=== PATIENT | female | born 1990 | race Caucasian/White ===

== ENCOUNTER 2017-11-13 15:42 | Observation (INO) | payer BC ==
[~2017-11-13] VITALS: Ht 154.9 cm; Wt 85.8 kg
[~2017-11-13 15:42] MED LIST: ALBU18HF IH; FEXO1TAB27 PO; HYDR-971 PO; LEXAPRO10 MG PO; METF10002 PO; METR500T PO; NITR100C62 PO; PROM25TA10 PO; SULF1TAB24 PO
[2017-11-13 17:28] VITALS: BP 117/74
[2017-11-13] MEDS ORDERED: ESCITALOPRAM OX20 MG PO (17:53)
[2017-11-13] MEDS ORDERED: ALBU1.25 NEB (17:53)
[2017-11-13] MEDS ORDERED: BIRTH CONTROL PILLS PO (17:53)
[2017-11-13] MEDS ORDERED: ALBUTEROL SULFATE 8GM INHALER. IH PRN (18:00)
[2017-11-13] MEDS ORDERED: NON FORMULARY ITEM (Albuterol Sulfate (Albuterol Sulfate Neb Soln) 1 VIAL) NEB SCH (18:00)
[2017-11-13] MEDS ORDERED: ALBUTEROL SULFATE 2.5 MG/3 ML NEBU. NEB PRN (18:15)
[2017-11-13] MEDS: IPRATRPIUM/ALBUTEROL 0.5/2.5MG 3 ML NEBU. NEB SCH (18:49)
--- NOTE | 2017-11-13 19:46 | RAD ---
PA and lateral chest radiograph. History: Cough, shortness of air. Comparison: None. Findings: Cardiomediastinal silhouette is within normal limits for size. Bilateral lung tolbert appear clear without evidence of infiltrate, effusion, or pneumothorax. Impression: 1. No acute cardiopulmonary process. Electronically signed by: Dusty Pettit MD (11/13/2017 7:42 PM) [facility]
[2017-11-13 19:48] LABS: BASO # 0.1 x10^3/uL (0.0-0.2); BASO % 1 % (0-3); EOS # 0.7 x10^3/uL (0.0-0.7); EOS % 6 % (0-3); HEMATOCRIT 40.4 % (36.0-47.0); HEMOGLOBIN 13.5 g/dL (12.0-15.5); LYMPH # 2.7 x10^3/uL (1.0-4.8); LYMPH % 23 % (24-48); MEAN CORPUSCULAR HEMOGLOBIN 28 pg (25-35); MEAN CORPUSCULAR HGB CONC 33 g/dL (31-37); MEAN CORPUSCULAR VOLUME 85 fL (79-100); MONO # 0.8 x10^3/uL (0.0-1.1); MONO % 7 % (0-9); NEUT # 7.3 x10^3uL (1.8-7.7); NEUT % 64 % (31-73); PLATELET COUNT 298 x10^3/uL (140-400); RED BLOOD COUNT 4.77 x10^6/uL (3.50-5.40); RED CELL DISTRIBUTION WIDTH 14.4 % (11.5-14.5); WHITE BLOOD COUNT 11.6 x10^3/uL (4.0-11.0)
[2017-11-13] MEDS ORDERED: ALBUTEROL SULFATE 2.5 MG/3 ML NEBU. NEB SCH (20:00)
[2017-11-13 20:01] LABS: ALBUMIN 3.5 g/dL (3.4-5.0); ALBUMIN/GLOBULIN RATIO 0.7 (1.0-1.7); CALCIUM 9.1 mg/dL (8.5-10.1); POTASSIUM 3.5 mmol/L (3.5-5.1); TOTAL BILIRUBIN 0.2 mg/dL (0.2-1.0); TOTAL PROTEIN 8.2 g/dL (6.4-8.2)
[2017-11-13 20:04] VITALS: BP 97/64
[2017-11-13] MEDS ORDERED: DIPH25CA58 PO (20:28)
[2017-11-13 20:40] LABS: INFLUENZA A PATIENT NEGATIVE (NEGATIVE); INFLUENZA B PATIENT NEGATIVE (NEGATIVE)
[2017-11-13] MEDS ORDERED: diphenhydrAMINE HCL 25 MG CAPSULE PO SCH (21:00)
[2017-11-13] MEDS: methylPREDNISolone SOD SUCC PF 40 MG/ML VIAL. IV SCH (21:10)
[2017-11-13 22:41] VITALS: BP 97/52
[2017-11-14] MEDS: IPRATRPIUM/ALBUTEROL 0.5/2.5MG 3 ML NEBU. NEB SCH ×2 (05:39→12:23)
[2017-11-14] MEDS: methylPREDNISolone SOD SUCC PF 40 MG/ML VIAL. IV SCH ×2 (05:42→15:29)
[2017-11-14 05:57] VITALS: BP 116/72
[2017-11-14] MEDS ORDERED: ACETAMINOPHEN 325 MG TABLET PO PRN (06:00)
[2017-11-14 07:01] LABS: BASO % 0 % (0-3); EOS % 0 % (0-3); HEMATOCRIT 42.1 % (36.0-47.0); HEMOGLOBIN 14.1 g/dL (12.0-15.5); LYMPH # 0.7 x10^3/uL (1.0-4.8); LYMPH % 6 % (24-48); MEAN CORPUSCULAR HEMOGLOBIN 28 pg (25-35); MEAN CORPUSCULAR HGB CONC 33 g/dL (31-37); MEAN CORPUSCULAR VOLUME 85 fL (79-100); MONO # 0.1 x10^3/uL (0.0-1.1); MONO % 1 % (0-9); NEUT # 10.4 x10^3uL (1.8-7.7); NEUT % 93 % (31-73); PLATELET COUNT 323 x10^3/uL (140-400); RED BLOOD COUNT 4.97 x10^6/uL (3.50-5.40); RED CELL DISTRIBUTION WIDTH 14.4 % (11.5-14.5); WHITE BLOOD COUNT 11.1 x10^3/uL (4.0-11.0)
[2017-11-14 07:12] LABS: CALCIUM 9.3 mg/dL (8.5-10.1)
[2017-11-14] MEDS ORDERED: BIRTH CONTROL PILLS PO SCH (09:00)
[2017-11-14] MEDS ORDERED: PNEUMOC CONJ VACC 23-VALENT 0.5 ML VIAL. VAX IM ONE (09:00)
[2017-11-14] MEDS ORDERED: CITALOPRAM 20 MG TABLET. PO SCH (09:00)
[2017-11-14] MEDS ORDERED: IOHEXOL 300 MG/ML 75 ML VIAL. IV ONE (10:10)
[2017-11-14] MEDS ORDERED: IBUPROFEN 800 MG TABLET. PO PRN (10:30)
[2017-11-14 11:16] VITALS: BP 111/81
[2017-11-14] MEDS ORDERED: PRED-220 PO (13:12)
[2017-11-14] MEDS ORDERED: IPRA3AMP NEB (13:12)
--- NOTE | 2017-11-14 14:59 | RAD ---
CTA chest 11/14/2017 Clinical indication: Elevated D dimer and shortness of air. Comparison: Two-view chest 11/13/2017. Technique: Multiple CTA images of the chest were obtained following the intravenous administration of 75 mL Omnipaque 300 with subsequent additional 75 mL intravenously due to poor contrast timing on the first run. MIPS were obtained of the chest. PQRS Compliance Statement: One or more of the following individualized dose reduction techniques were utilized for this examination: 1. Automated exposure control 2. Adjustment of the mA and/or kV according to patient size 3. Use of iterative reconstruction technique Findings: No central or major segmental pulmonary arterial filling defect. Heart size is normal without significant pericardial effusion. No axillary, mediastinal or obvious hilar lymphadenopathy. The central airways are patent. No pleural effusion, pneumothorax or focal consolidation. There are few scattered sub-5 mm noncalcified pulmonary nodules which are considered benign the absence of known or suspected malignancy with no additional follow-up according to new guidelines. No pleural effusion or pneumothorax. There are no destructive osseous lesions. Limited images of the upper abdomen: Unremarkable. Impression: No central or major segmental pulmonary artery filling defect to suggest pulmonary embolism.
[2017-11-14 15:04] VITALS: BP 122/77
== END 2017-11-14 16:43 | disposition home or self-care (01) ==
LOC: INTOOBSV 17:05 → 1 SOUTH 17:05
PROVIDERS: ADMIT Family Medicine; ATTEND Family Medicine
DX: J45.51 Severe persistent asthma with (acute) exacerbation (principal); Z82.5 Family history of asthma and other chronic lower respiratory diseases
CPT/HCPCS: 36415; 71046; 71275; 80048; 80053; 83605; 84702; 85025; 85379; 87804; 94640; 96374; 96376; G0378; G0379; J2920; J7620; Q0163; Q9967

== ENCOUNTER 2020-02-22 13:34 | Emergency (ER) | payer BC ==
[~2020-02-22] VITALS: Ht 154.9 cm; Wt 96.8 kg
[~2020-02-22 13:34] MED LIST changes: +ALBU1.25 NEB; -ALBU18HF IH; +ALBU2.5V8 IH; +BENZ100C PO; +BIRTH CONTROL PILLS PO; +DIPH25CA58 PO; +ESCITALOPRAM OX20 MG PO; +FAMO-63 PO; +GUAI118L13 PO; +HYDR-3165 PO; -HYDR-971 PO; +HYDR25TA PO; +IPRA3AMP29 NEB; -METF10002 PO; +METF10007 PO; +ONDA4TAB12 PO; +PRED-220 PO; +PRED20TA PO; +PRED50TA PO
[2020-02-22 13:35] VITALS: BP 121/78
[2020-02-22] MEDS ORDERED: IV NORMAL SALINE 1,000ML 1,000 ML IV ONE (14:30)
[2020-02-22 14:42] LABS: U PREG PATIENT NEGATIVE (NEG)
[2020-02-22 14:46] LABS: CLARITY,URINE CLOUDY; COLOR,URINE ORANGE
[2020-02-22 14:47] LABS: BACTERIA,URINE 0 /HPF (0-FEW); RBC,URINE >40 /HPF (0-2); SQUAMOUS EPITHELIAL CELL,UR FEW /LPF; WBC,URINE >40 /HPF (0-4)
[2020-02-22 14:56] LABS: BASO # 0.1 x10^3/uL (0.0-0.2); BASO % 1 % (0-3); EOS # 0.3 x10^3/uL (0.0-0.7); EOS % 2 % (0-3); HEMATOCRIT 40.9 % (36.0-47.0); HEMOGLOBIN 13.3 g/dL (12.0-15.5); LYMPH # 1.6 x10^3/uL (1.0-4.8); LYMPH % 13 % (24-48); MEAN CORPUSCULAR HEMOGLOBIN 27 pg (25-35); MEAN CORPUSCULAR HGB CONC 33 g/dL (31-37); MEAN CORPUSCULAR VOLUME 82 fL (79-100); MONO # 0.7 x10^3/uL (0.0-1.1); MONO % 6 % (0-9); NEUT # 9.7 x10^3uL (1.8-7.7); NEUT % 79 % (31-73); PLATELET COUNT 315 x10^3/uL (140-400); RED BLOOD COUNT 4.99 x10^6/uL (3.50-5.40); RED CELL DISTRIBUTION WIDTH 15.1 % (11.5-14.5); WHITE BLOOD COUNT 12.4 x10^3/uL (4.0-11.0)
[2020-02-22] MEDS ORDERED: diphenhydrAMINE 50 MG/ML VIAL IVP ONE (15:00)
[2020-02-22] MEDS ORDERED: KETOROLAC 15 MG/ML VIAL. IVP ONE (15:00)
[2020-02-22] MEDS ORDERED: METOCLOPRAMIDE HCL 10 MG/2 ML VIAL. IVP ONE (15:00)
--- NOTE | 2020-02-22 15:00 | RAD ---
INDICATION: Flank pain COMPARISON: None. TECHNIQUE: Axial CT images obtained through the abdomen and pelvis without contrast. Limited assessment of solid organ structures and vasculature secondary to lack of intravenous contrast. . One or more of the following individualized dose reduction techniques were utilized for this examination: 1. Automated exposure control; 2. Adjustment of the mA and/or kV according to patient size; 3. Use of iterative reconstruction technique. FINDINGS: Groundglass opacity within the lingula. Abdominal aorta is not aneurysmal. Small fat-containing umbilical hernia. No intrahepatic bile duct dilation. No peripancreatic fluid collection. Spleen is unremarkable. No left-sided hydronephrosis. Urinary bladder is partially distended with mild indistinctness of the adjacent fat with prominence of the wall. No right-sided hydronephrosis. Within the left adnexa there is a cystic lesion identified measuring up to about 4 cm. Appendix measures up to about 6 mm without adjacent inflammatory changes. High density material seen within it proximally could be high density intraluminal content or appendicolith. No dilated loops of bowel to suggest obstruction. Degenerative changes the spine. Pars defects at L5. IMPRESSION: * Urinary bladder wall is prominent with mild indistinctness of adjacent fat. Would correlate with symptoms in the region to ensure that this is not secondary to cystitis. * Cystic lesion at the left ovary. If further evaluation is desired pelvic ultrasound could further assess Electronically signed by: Mookie Elizabeth MD (02/22/2020 2:58 PM) [id number]
[2020-02-22 15:04] LABS: CALCIUM 9.1 mg/dL (8.5-10.1); GFR 65.6; POTASSIUM 3.9 mmol/L (3.5-5.1)
[2020-02-22 15:10] LABS: ALBUMIN 3.8 g/dL (3.4-5.0); ALBUMIN/GLOBULIN RATIO 0.8 (1.0-1.7); TOTAL BILIRUBIN 0.2 mg/dL (0.2-1.0); TOTAL PROTEIN 8.3 g/dL (6.4-8.2)
[2020-02-22] MEDS ORDERED: ONDA4TAB12 PO (15:26)
[2020-02-22] MEDS ORDERED: CEPH-264 PO (15:26)
--- NOTE | 2020-02-22 15:26 | PHYS DOC ---
Past History Past Medical History: Anxiety, Asthma Past Surgical History: , Tubal ligation Smoking: Non-smoker Alcohol Use: Rarely Drug Use: None General Adult EDM: Chief Complaint: FLANK PAIN HPI: HPI: 30-year-old female presents with 4 day history of dysuria with left-sided flank pain. Reports some associated nausea. Patient thought she had a urinary tract infection and was using [id number]-[id number] Azo. Patient reports symptoms have significantly worsened. Denies trauma. Patient does report seeing some blood in her urine the other day. Denies history of kidney stones. Denies . Reports history of tubal ligation. Review of Systems: Review of Systems: Constitutional: Denies fever or chills Eyes: Denies redness or eye pain HENT: Denies nasal congestion or sore throat Respiratory: Denies cough or shortness of breath Cardiovascular: Denies chest pain or palpitations GI: Reports suprapubic abdominal pain and nausea; denies vomiting : Reports dysuria and hematuria Musculoskeletal: Reports left flank pain; denies joint pain Integument: Denies rash or skin lesions Neurologic: Denies headache, focal weakness or sensory changes Complete systems were reviewed and found to be within normal limits, except as documented in this note. Current Medications: Current Meds: Current Medications Medications (Trade) Dose Ordered Sig/Duncan Start Time Stop Time Status Last Admin Dose Admin Ceftriaxone Sodium 1 gm/ Sodium Chloride 50 ml @ 100 mls/hr 1X ONCE 02/22/20 15:45 02/22/20 16:14 Diphenhydramine HCl (Benadryl) 25 mg 1X ONCE 02/22/20 15:00 02/22/20 15:01 DC 02/22/20 14:47 25 MG Ketorolac Tromethamine (Toradol 15mg Vial) 15 mg 1X ONCE 02/22/20 15:00 02/22/20 15:01 DC 02/22/20 14:47 15 MG Metoclopramide HCl (Reglan Vial) 10 mg 1X ONCE 02/22/20 15:00 02/22/20 15:01 DC 02/22/20 14:47 10 MG Sodium Chloride 1,000 ml @ 1,000 mls/hr 1X ONCE 02/22/20 14:30 02/22/20 15:29 02/22/20 14:47 1,000 MLS/HR Allergies: Allergies: Allergies Coded Allergies Type Severity Reaction Last Updated Verified Penicillins Allergy Unknown keflex ok 02/22/20 Yes shellfish derived Allergy Unknown 10/11/19 Yes Physical Exam: PE: Constitutional: Well developed, well nourished, no acute distress, non-toxic appearance HENT: Normocephalic, atraumatic, oropharynx moist Eyes: Conjunctiva normal, no discharge Neck: Normal range of motion, no tenderness, supple Cardiovascular: Heart rate normal, regular rhythm Lungs & Thorax: Bilateral breath sounds clear to auscultation, no wheezing Abdomen: Soft, suprapubic tenderness Skin: Warm, dry, no erythema, no rash Back: No midline tenderness, left CVA tenderness Extremities: No tenderness, ROM intact, no edema Neurologic: Alert and oriented X 3, no focal deficits noted Psychologic: Affect normal, judgment normal Current Patient Data: Labs: Laboratory Tests Test 02/22/20 13:40 02/22/20 14:37 Urine Collection Type Unknown Urine Color [place] Urine Clarity Cloudy Urine pH Urine Specific [place] Urine Protein (NEG-TRACE) Urine Glucose (UA) mg/dL (NEG) Urine Ketones (Stick) mg/dL (NEG) Urine Blood (NEG) Urine Nitrite (NEG) Urine Bilirubin (NEG) Urine Urobilinogen Dipstick mg/dL (0.2 mg/dL) Urine Leukocyte Esterase (NEG) Urine RBC >40 /HPF (0-2) Urine WBC >40 /HPF (0-4) Urine Squamous Epithelial Cells Few /LPF Urine Bacteria 0 /HPF (0-FEW) Urine Test Negative (NEG) White Blood Count 12.4 x10^3/uL (4.0-11.0) H Red Blood Count 4.99 x10^6/uL (3.50-5.40) Hemoglobin 13.3 g/dL (12.0-15.5) Hematocrit 40.9 % (36.0-47.0) Mean Corpuscular Volume 82 fL (79-100) Mean Corpuscular Hemoglobin 27 pg (25-35) Mean Corpuscular Hemoglobin Concent 33 g/dL (31-37) Red Cell Distribution Width 15.1 % (11.5-14.5) H Platelet Count 315 x10^3/uL (140-400) Neutrophils (%) (Auto) 79 % (31-73) H Lymphocytes (%) (Auto) 13 % (24-48) L Monocytes (%) (Auto) 6 % (0-9) Eosinophils (%) (Auto) 2 % (0-3) Basophils (%) (Auto) 1 % (0-3) Neutrophils # (Auto) 9.7 x10^3uL (1.8-7.7) H Lymphocytes # (Auto) 1.6 x10^3/uL (1.0-4.8) Monocytes # (Auto) 0.7 x10^3/uL (0.0-1.1) Eosinophils # (Auto) 0.3 x10^3/uL (0.0-0.7) Basophils # (Auto) 0.1 x10^3/uL (0.0-0.2) Sodium Level 136 mmol/L (136-145) Potassium Level 3.9 mmol/L (3.5-5.1) Chloride Level 102 mmol/L (98-107) Carbon Dioxide Level 25 mmol/L (21-32) Anion Gap 9 (6-14) Blood Urea Nitrogen 12 mg/dL (7-20) Creatinine 1.0 mg/dL (0.6-1.0) Estimated GFR (Cockcroft-Gault) 65.6 BUN/Creatinine Ratio 12 (6-20) Glucose Level 74 mg/dL (70-99) Lactic Acid Level 0.9 mmol/L (0.4-2.0) Calcium Level 9.1 mg/dL (8.5-10.1) Magnesium Level 2.0 mg/dL (1.8-2.4) Total Bilirubin 0.2 mg/dL (0.2-1.0) Aspartate Amino Transferase (AST) 19 U/L (15-37) Alanine Aminotransferase (ALT) 24 U/L (14-59) Alkaline Phosphatase 114 U/L (46-116) Total Protein 8.3 g/dL (6.4-8.2) H Albumin 3.8 g/dL (3.4-5.0) Albumin/Globulin Ratio 0.8 (1.0-1.7) L Lipase 67 U/L (73-393) L Vital Signs: Vital Signs Date Time Temp Pulse Resp B/P (MAP) Pulse Ox O2 Delivery O2 Flow Rate FiO2 02/22/20 13:35 97.6 90 20 121/78 (92) 97 Room Air EKG: EKG: [] Radiology/Procedures: Radiology/Procedures: PROCEDURE: CT ABDOMEN PELVIS WO CONTRAST INDICATION: Flank pain COMPARISON: None. TECHNIQUE: Axial CT images obtained through the abdomen and pelvis without contrast. Limited assessment of solid organ structures and vasculature secondary to lack of intravenous contrast. . One or more of the following individualized dose reduction techniques were utilized for this examination: 1. Automated exposure control; 2. Adjustment of the mA and/or kV according to patient size; 3. Use of iterative reconstruction technique. FINDINGS: Groundglass opacity within the lingula. Abdominal aorta is not aneurysmal. Small fat-containing umbilical hernia. No intrahepatic bile duct dilation. No peripancreatic fluid collection. Spleen is unremarkable. No left-sided hydronephrosis. Urinary bladder is partially distended with mild indistinctness of the adjacent fat with prominence of the wall. No right-sided hydronephrosis. Within the left adnexa there is a cystic lesion identified measuring up to about 4 cm. Appendix measures up to about 6 mm without adjacent inflammatory changes. High density material seen within it proximally could be high density intraluminal content or appendicolith. No dilated loops of bowel to suggest obstruction. Degenerative changes the spine. Pars defects at L5. IMPRESSION: * Urinary bladder wall is prominent with mild indistinctness of adjacent fat. Would correlate with symptoms in the region to ensure that this is not secondary to cystitis. * Cystic lesion at the left ovary. If further evaluation is desired pelvic ultrasound could further assess Electronically signed by: Mookie Elizabeth MD (02/22/2020 2:58 PM) [id number] Course & Med Decision Making: Course & Med Decision Making Pertinent Labs and Imaging studies reviewed. (See chart for details) Patient presents with 4 day history of dysuria with hematuria, nausea, and left flank pain. Symptomatic treatment provided. There is fluid hydration provided. Labs obtained and posted to chart. UA with microscopic hematuria and signs of infection. Empiric antibiotic initiated. CT abdomen/pelvis without findings consistent for obstructing uropathy. Findings appear consistent with cystitis. Clinical concern for pyelonephritis. Patient stable for discharge with outpatient follow-up with PCP. Discussed findings and plan with patient, who acknowledges understanding and agreement. Ethan Disclaimer: Ethan Disclaimer: This electronic medical record was generated, in whole or in part, using a voice recognition dictation system. Departure Departure: Impression: Primary Impression: Pyelonephritis Disposition: HOME, SELF-CARE Condition: STABLE Referrals: PCP,NO (PCP) Patient Instructions: Pyelonephritis, Adult, [place] Scripts Ondansetron (ONDANSETRON ODT) 4 Mg Tab.rapdis 1 TAB PO PRN Q6-8HRS PRN for NAUSEA, #16 TAB Prov: LISSETH RODRÍGUEZ DO 02/22/20 Cephalexin (KEFLEX) 500 Mg Capsule 1 CAP PO TID for Kidney infection for 7 Days, #21 CAP 0 Refills Prov: LISSETH RODRÍGUEZ DO 02/22/20 LISSETH RODRÍGUEZ DO Feb 22, 2020 15:26
[2020-02-22] MEDS ORDERED: IV NORMAL SALINE 50ML 50 ML ONE (15:28)
[2020-02-22] MEDS ORDERED: cefTRIAXone SODIUM 1 GM VIAL ONE (15:28)
== END 2020-02-22 15:45 | disposition home or self-care (01) ==
LOC: MERGE 13:34 → ER 13:34
DX: N12 Tubulo-interstitial nephritis, not specified as acute or chronic (principal); J45.909 Unspecified asthma, uncomplicated; Z98.890 Other specified postprocedural states; Z98.51 Tubal ligation status; Z88.0 Allergy status to penicillin; Z91.013 Allergy to seafood
CPT/HCPCS: 36415; 74176; 80053; 81001; 81025; 83605; 83690; 83735; 85025; 87086; 96374; 96375; 99284; J1200; J1885; J2765; J7030

== ENCOUNTER 2020-04-06 12:15 | Emergency (ER) | payer BC ==
[~2020-04-06] VITALS: Ht 154.9 cm; Wt 94.9 kg
[~2020-04-06 12:15] MED LIST changes: +CEPH-264 PO
--- NOTE | 2020-04-06 12:40 | PHYS DOC ---
Past History Past Medical History: Anxiety, Asthma Past Surgical History: , Tubal ligation Smoking: Non-smoker Alcohol Use: Rarely Drug Use: None General Adult EDM: Chief Complaint: SKIN PROBLEM HPI: HPI: Patient presents to the emergency department for evaluation of a sunburn which she received on Monday. She states she has a few small focal blisters. She states she is tried whqn-heh-[id number] ointments without improvement. She has no other complaints or symptoms at this time. She does request a work note for today and tomorrow. Review of Systems: Review of Systems: Constitutional: Denies fever or chills Respiratory: Denies cough or shortness of breath Cardiovascular: Denies chest pain or edema GI: Denies abdominal pain, nausea, vomiting, bloody stools or diarrhea : Denies dysuria, denies Musculoskeletal: Denies back pain or joint pain Integument: Denies rash Neurologic: Denies headache, focal weakness or sensory changes Heart Score: Risk Factors: Risk Factors: DM, Current or recent (<one month) smoker, HTN, HLP, family history of CAD, obesity. Risk Scores: Score 0 - 3: 2.5% MACE over next 6 weeks - Discharge Home Score 4 - 6: 20.3% MACE over next 6 weeks - Admit for Clinical Observation Score 7 - 10: 72.7% MACE over next 6 weeks - Early Invasive Strategies Allergies: Allergies: Allergies Coded Allergies Type Severity Reaction Last Updated Verified Penicillins Allergy Intermediate 11/14/17 Yes shellfish derived Allergy Unknown 02/24/20 Yes Physical Exam: PE: PHYSICAL EXAM: HEENT: Atruamatic NECK: Supple, normal ROM, non-tender. CARDIAC: Regular Rate and Rhythm LUNGS: Clear Bilaterally SKIN: There is hyperemia of the skin diffusely, with a small focal blister about 1 cm on the left shoulder. No other blisters lesions are visualized. There is no peeling of the skin noted. EKG: EKG: [] Radiology/Procedures: Radiology/Procedures: [] Course & Med Decision Making: Course & Med Decision Making I discussed the continued use of eadz-rkz-nyszwur analgesic ointments, the need for PCP follow-up and return precautions. Also discussed importance of limiting sun exposure and use of sunscreen. Ethan Disclaimer: Ethan Disclaimer: This electronic medical record was generated, in whole or in part, using a voice recognition dictation system. Departure Departure: Impression: Primary Impression: Sunburn Disposition: 01 HOME/RESIDENCE PRIOR TO ADM Condition: STABLE Referrals: PCP,NO (PCP) Patient Instructions: Sunburn Justification of Admission: Justification of Admission: Justification of Admission Dx: N/A RIAN GARCIA MD Apr 06, 2020 12:40
[2020-04-06 12:49] VITALS: BP 108/63
== END 2020-04-06 12:55 | disposition home or self-care (01) ==
LOC: ER 12:15
DX: L55.9 Sunburn, unspecified (principal); F41.9 Anxiety disorder, unspecified; J45.909 Unspecified asthma, uncomplicated; Z88.0 Allergy status to penicillin; Z91.013 Allergy to seafood
CPT/HCPCS: 99282

== ENCOUNTER 2020-08-11 12:31 | Emergency (ER) | payer BC ==
[~2020-08-11] VITALS: Ht 154.9 cm; Wt 94.9 kg
[2020-08-11 12:40] VITALS: BP 108/63
[2020-08-11] MEDS ORDERED: IV NORMAL SALINE 1,000ML 1,000 ML IV ONE (13:00)
[2020-08-11] MEDS ORDERED: KETOROLAC 15 MG/ML VIAL. IVP ONE (13:00)
[2020-08-11] MEDS ORDERED: ONDANSETRON PF 4 MG/2 ML VIAL. IVP ONE (13:00)
[2020-08-11] MEDS ORDERED: FAMOTIDINE 20 MG/2 ML VIAL IVP ONE (13:00)
[2020-08-11 13:07] LABS: BASO % 0 % (0-3); EOS # 0.3 x10^3/uL (0.0-0.7); EOS % 2 % (0-3); HEMOGLOBIN 13.1 g/dL (12.0-15.5); LYMPH # 1.2 x10^3/uL (1.0-4.8); LYMPH % 7 % (24-48); MEAN CORPUSCULAR HEMOGLOBIN 27 pg (25-35); MEAN CORPUSCULAR HGB CONC 32 g/dL (31-37); MEAN CORPUSCULAR VOLUME 85 fL (79-100); MONO # 0.8 x10^3/uL (0.0-1.1); MONO % 5 % (0-9); NEUT # 13.8 x10^3uL (1.8-7.7); NEUT % 86 % (31-73); PLATELET COUNT 326 x10^3/uL (140-400); RED CELL DISTRIBUTION WIDTH 14.1 % (11.5-14.5); WHITE BLOOD COUNT 16.1 x10^3/uL (4.0-11.0)
[2020-08-11 13:10] LABS: CALCIUM 8.4 mg/dL (8.5-10.1); GFR 65.6; POTASSIUM 3.8 mmol/L (3.5-5.1)
[2020-08-11 13:16] LABS: ALBUMIN 3.4 g/dL (3.4-5.0); ALBUMIN/GLOBULIN RATIO 0.8 (1.0-1.7); TOTAL BILIRUBIN 0.1 mg/dL (0.2-1.0); TOTAL PROTEIN 7.6 g/dL (6.4-8.2)
[2020-08-11 13:21] LABS: BACTERIA,URINE FEW /HPF (0-FEW); BILIRUBIN,URINE NEG (NEG); CLARITY,URINE HAZY; COLOR,URINE YELLOW; GLUCOSE,URINE NEG (NEG); NITRITE,URINE NEG (NEG); UROBILINOGEN,URINE 0.2 mg/dL (0.2 mg/dL)
[2020-08-11 13:22] LABS: SQUAMOUS EPITHELIAL CELL,UR MOD /LPF
--- NOTE | 2020-08-11 13:27 | PHYS DOC ---
Past History Past Medical History: Anxiety, Asthma Past Surgical History: , Tubal ligation Smoking: Non-smoker Alcohol Use: Rarely Drug Use: None General Adult EDM: Chief Complaint: NAUSEA/VOMITING/DIARRHEA HPI: HPI: Patient is a 30 year old F who presents with epigastric pain, nausea, vomiting, diarrhea that started at 7:30 AM this morning. She has vomited six times since sx onset and has had watery diarrhea. Denies hematemasis and hematochezia. States that she ate 6 pizza rolls and 2 honey bones last night for dinner, and has not been able to keep anything down this morning due to nausea and diarrhea. Reports some lightheadedness after multiple episodes of vomiting and diarrhea. Denies any close contacts with similar symptoms. Denies flulike symptoms, CP, SOA. Review of Systems: Review of Systems: Constitutional: Denies fever or chills Eyes: Denies redness or eye pain HENT: Denies nasal congestion or sore throat Respiratory: Reports cough typical with her asthma, Denies shortness of breath Cardiovascular: Denies chest pain or palpitations GI: Reports epigastric abdominal pain, nausea, vomiting, diarrhea : Denies dysuria or hematuria Musculoskeletal: Denies back pain or joint pain Integument: Denies rash or skin lesions Neurologic: Denies headache, focal weakness or sensory changes Complete systems were reviewed and found to be within normal limits, except as documented in this note. Current Medications: Current Meds: Current Medications Medications (Trade) Dose Ordered Sig/Duncan Start Time Stop Time Status Last Admin Dose Admin Famotidine (Pepcid Vial) 20 mg 1X ONCE 08/11/20 13:00 08/11/20 13:01 DC 08/11/20 13:16 20 MG Ketorolac Tromethamine (Toradol 15mg Vial) 15 mg 1X ONCE 08/11/20 13:00 08/11/20 13:01 DC 08/11/20 13:15 15 MG Ondansetron HCl (Zofran) 4 mg 1X ONCE 08/11/20 13:00 08/11/20 13:01 DC 08/11/20 13:15 4 MG Sodium Chloride 1,000 ml @ 1,000 mls/hr 1X ONCE 08/11/20 13:00 08/11/20 13:59 08/11/20 13:15 1,000 MLS/HR Allergies: Allergies: Allergies Coded Allergies Type Severity Reaction Last Updated Verified Penicillins Allergy Intermediate 04/06/20 Yes shellfish derived Allergy Unknown 04/06/20 Yes Physical Exam: PE: Constitutional: Well developed, well nourished, no acute distress, non-toxic appearance. [] HENT: Normocephalic, atraumatic, bilateral external ears normal, oropharynx moist, no oral exudates, nose normal. [] Eyes: PERRLA, EOMI, conjunctiva normal, no discharge. [] Neck: Normal range of motion, no tenderness, supple, no stridor. [] Cardiovascular:Heart rate regular rhythm, no murmur [] Lungs & Thorax: Bilateral breath sounds clear to auscultation [] Abdomen: Bowel sounds normal, soft, no tenderness, no masses, no pulsatile masses. [] Skin: Warm, dry, no erythema, no rash. [] Back: No tenderness, no CVA tenderness. [] Extremities: No tenderness, no cyanosis, no clubbing, ROM intact, no edema. [] Neurologic: Alert and oriented X 3, normal motor function, normal sensory function, no focal deficits noted. [] Psychologic: Affect normal, judgement normal, mood normal. [] Current Patient Data: Labs: Laboratory Tests Test 08/11/20 12:45 08/11/20 13:05 White Blood Count 16.1 x10^3/uL (4.0-11.0) H Red Blood Count 4.80 x10^6/uL (3.50-5.40) Hemoglobin 13.1 g/dL (12.0-15.5) Hematocrit 41.0 % (36.0-47.0) Mean Corpuscular Volume 85 fL (79-100) Mean Corpuscular Hemoglobin 27 pg (25-35) Mean Corpuscular Hemoglobin Concent 32 g/dL (31-37) Red Cell Distribution Width 14.1 % (11.5-14.5) Platelet Count 326 x10^3/uL (140-400) Neutrophils (%) (Auto) 86 % (31-73) H Lymphocytes (%) (Auto) 7 % (24-48) L Monocytes (%) (Auto) 5 % (0-9) Eosinophils (%) (Auto) 2 % (0-3) Basophils (%) (Auto) 0 % (0-3) Neutrophils # (Auto) 13.8 x10^3uL (1.8-7.7) H Lymphocytes # (Auto) 1.2 x10^3/uL (1.0-4.8) Monocytes # (Auto) 0.8 x10^3/uL (0.0-1.1) Eosinophils # (Auto) 0.3 x10^3/uL (0.0-0.7) Basophils # (Auto) 0.0 x10^3/uL (0.0-0.2) Platelet Estimate Pending Sodium Level 138 mmol/L (136-145) Potassium Level 3.8 mmol/L (3.5-5.1) Chloride Level 103 mmol/L (98-107) Carbon Dioxide Level 28 mmol/L (21-32) Anion Gap 7 (6-14) Blood Urea Nitrogen 10 mg/dL (7-20) Creatinine 1.0 mg/dL (0.6-1.0) Estimated GFR (Cockcroft-Gault) 65.6 BUN/Creatinine Ratio 10 (6-20) Glucose Level 89 mg/dL (70-99) Calcium Level 8.4 mg/dL (8.5-10.1) L Total Bilirubin 0.1 mg/dL (0.2-1.0) L Aspartate Amino Transferase (AST) 18 U/L (15-37) Alanine Aminotransferase (ALT) 20 U/L (14-59) Alkaline Phosphatase 125 U/L (46-116) H Total Protein 7.6 g/dL (6.4-8.2) Albumin 3.4 g/dL (3.4-5.0) Albumin/Globulin Ratio 0.8 (1.0-1.7) L Lipase 75 U/L (73-393) POC Urine HCG, Qualitative hcg negative (Negative) Vital Signs: Vital Signs Date Time Temp Pulse Resp B/P (MAP) Pulse Ox O2 Delivery O2 Flow Rate FiO2 08/11/20 12:40 97.9 108/63 (78) EKG: EKG: [] Radiology/Procedures: Radiology/Procedures: [] Course & Med Decision Making: Course & Med Decision Making Pertinent Labs reviewed. (See chart for details) Patient presented to the ED with epigastric pain, nausea, vomiting, and diarrhea that started this morning. Fluids were started and nausea was controlled. WBC 16.1, lipase WNL. Due to relatively benign physical exam findings and risk versus reward of radiation exposure, the decision was made with the patient to avoid abdominal imaging at this time. Patient most likely dealing with a gastroenteritis and will be treated symptomatically as out patient. Patient stable for discharge with outpatient follow-up with PCP. Discussed findings and plan with patient, who acknowledges understanding and agreement. Ethan Disclaimer: Ethan Disclaimer: This electronic medical record was generated, in whole or in part, using a voice recognition dictation system. Departure Departure: Impression: Primary Impression: Nausea vomiting and diarrhea Disposition: HOME SELF CARE/HOMELESS Condition: STABLE Referrals: PCP,NO (PCP) Patient Instructions: Clear Liquid Diet, Zvti-[id number], Diarrhea, Encw-qz-Vorw, Diet for Diarrhea, Adult, Viral Gastroenteritis, Ombx-gq-Jyws Scripts Hyoscyamine Sulfate (LEVSIN-SL) 0.125 Mg Tab.subl 0.125 MG SL Q4-6HRS PRN for PAIN, #14 TAB Prov: LISSETH RODRÍGUEZ DO 08/11/20 Famotidine (PEPCID) 20 Mg Tablet 1 TAB PO BID for Gastritis for 7 Days, #14 TAB Prov: LISSETH RODRÍGUEZ DO 08/11/20 Ondansetron (ONDANSETRON ODT) 4 Mg Tab.rapdis 1 TAB PO PRN Q6-8HRS PRN for NAUSEA, #16 TAB Prov: LISSETH RODRÍGUEZ DO 08/11/20 LISSETH RODRÍGUEZ DO Aug 11, 2020 13:27
[2020-08-11 14:08] LABS: % BANDS 5 % (0-9); % EOS 1 % (0-5); % LYMPHS 7 % (24-48); % MONOS 5 % (0-10); % SEGS 82 % (35-66); PLT ESTIMATE ADEQUATE (ADEQUATE); TOXIC GRANULATION PRESENT; TOXIC VACUOLATION PRESENT
[2020-08-11] MEDS ORDERED: ONDA4TAB12 PO (15:06)
[2020-08-11] MEDS ORDERED: FAMO-63 PO (15:06)
[2020-08-11] MEDS ORDERED: HYOS0.1265 SL (15:06)
[2020-08-11] MEDS ORDERED: DICYCLOMINE HCL 20 MG TABLET PO ONE (15:15)
== END 2020-08-11 15:23 | disposition home or self-care (01) ==
LOC: ER 12:31
DX: R10.13 Epigastric pain (principal); R11.2 Nausea with vomiting, unspecified; R19.7 Diarrhea, unspecified; J45.909 Unspecified asthma, uncomplicated; Z98.890 Other specified postprocedural states; Z98.51 Tubal ligation status; Z88.0 Allergy status to penicillin; Z91.013 Allergy to seafood
CPT/HCPCS: 36415; 80053; 81001; 81025; 83690; 85007; 85025; 96361; 96374; 96375; 99284; J1885; J2405; J3490; J7030

== ENCOUNTER 2020-09-18 13:55 | Emergency (ER) | payer BC ==
[~2020-09-18] VITALS: Ht 154.9 cm; Wt 94.9 kg
[~2020-09-18 13:55] MED LIST changes: +HYOS0.1265 SL
[2020-09-18 14:09] VITALS: BP 137/74
[2020-09-18] MEDS ORDERED: METH4TAB2 PO (14:41)
[2020-09-18] MEDS ORDERED: CYCL-331 PO (14:41)
[2020-09-18] MEDS ORDERED: NAPR-514 PO (14:41)
--- NOTE | 2020-09-18 14:41 | PHYS DOC ---
Past History Past Medical History: Anxiety, Asthma, Bipolar, Depression Past Surgical History: , Tubal ligation Smoking: Non-smoker Alcohol Use: Rarely Drug Use: None General Adult EDM: Chief Complaint: SHOULDER INJURY HPI: HPI: Patient is a 89-year-old female who presents to the emergency department with pain in the right side of her neck that radiates to her right shoulder for the last 12 days. Patient states that she awoke with pain. She denies any injury, trauma, or heavy lifting. She reports that the pain is worse with movement. She denies any decreased sensation in her right upper extremity. She currently rates pain a 7 out of 10 on the pain scale. Patient states she has been taking ibuprofen, Tylenol, and Aleve at home with no relief of her symptoms. She denies any numbness, tingling, or weakness of the affected extremity. Review of Systems: Review of Systems: Complete ROS is negative unless otherwise noted in HPI. Allergies: Allergies: Allergies Coded Allergies Type Severity Reaction Last Updated Verified Penicillins Allergy Intermediate 04/06/20 Yes shellfish derived Allergy Unknown 04/06/20 Yes Physical Exam: PE: See Above Constitutional: Well developed, well nourished, no acute distress, non-toxic appearance, obese. [] HENT: Normocephalic, atraumatic, bilateral external ears normal, nose normal. [] Eyes: PERRLA, EOMI, conjunctiva normal, no discharge. [] Neck: Normal range of motion, supple, no stridor; right paracervical tenderness to palpation and radiates to right shoulder consistent with cervical strain of the trapezius muscle [] Cardiovascular:Heart rate regular rhythm Lungs & Thorax: Respirations even and unlabored, no retractions, no respiratory distress Skin: Warm, dry, no erythema, no rash. [] Extremities: Right shoulder: No bony tenderness, no cyanosis, ROM intact, increased pain with range of motion, no edema. [] Neurologic: Alert and oriented X 3, no focal deficits noted. [] Psychologic: Affect normal, judgement normal, mood normal. [] Current Patient Data: Vital Signs: Vital Signs Date Time Temp Pulse Resp B/P (MAP) Pulse Ox O2 Delivery O2 Flow Rate FiO2 09/18/20 14:09 97.8 77 16 137/74 (95) 98 Room Air EKG: EKG: [] Radiology/Procedures: Radiology/Procedures: [] Heart Score: Risk Factors: Risk Factors: DM, Current or recent (<one month) smoker, HTN, HLP, family history of CAD, obesity. Risk Scores: Score 0 - 3: 2.5% MACE over next 6 weeks - Discharge Home Score 4 - 6: 20.3% MACE over next 6 weeks - Admit for Clinical Observation Score 7 - 10: 72.7% MACE over next 6 weeks - Early Invasive Strategies Course & Med Decision Making: Course & Med Decision Making Pertinent Labs and Imaging studies reviewed. (See chart for details) [] Dragon Disclaimer: Dragon Disclaimer: This electronic medical record was generated, in whole or in part, using a voice recognition dictation system. Departure Departure: Impression: Primary Impression: Strain of cervical portion of right trapezius muscle Disposition: 01 DC HOME SELF CARE/HOMELESS Condition: STABLE Referrals: [facility] (PCP) ALICIA REDDING MD Patient Instructions: Cervical Strain and Sprain with Rehab-Sports[facility], Shoulder Pain, [id number] Additional Instructions: Fill prescription(s) and use as directed. Recommend application of ice, elevation, and rest of affected extremity. Follow-up with Dr. Redding for further evaluation. Return to the ER if your symptoms worsen. Scripts Cyclobenzaprine Hcl (CYCLOBENZAPRINE HCL) 10 Mg Tablet 1 TAB PO TID PRN for PAIN for 10 Days, #30 TAB 0 Refills Prov: STEPHANIE HILL TOUCH UP PAINTER 09/18/20 Naproxen (NAPROXEN) 500 Mg Tablet 1 TAB PO BID for pain for 10 Days, #20 TAB 0 Refills Prov: STEPHANIE HILL TOUCH UP PAINTER 09/18/20 Methylprednisolone (MEDROL) 4 Mg Tab.ds.pk 1 PKG PO UD for inflammation for 6 Days, #1 PKG 0 Refills Prov: STEPHANIE HILL TOUCH UP PAINTER 09/18/20 STEPHANIE HILL TOUCH UP PAINTER Sep 18, 2020 14:41
== END 2020-09-18 14:47 | disposition home or self-care (01) ==
LOC: ER 13:55
DX: S16.1XXA Strain of muscle, fascia and tendon at neck level, initial encounter (principal); M25.511 Pain in right shoulder; F41.9 Anxiety disorder, unspecified; J45.909 Unspecified asthma, uncomplicated; F32.9 Major depressive disorder, single episode, unspecified; Z98.890 Other specified postprocedural states; Z98.51 Tubal ligation status; Z88.0 Allergy status to penicillin; Z91.013 Allergy to seafood; X58.XXXA Exposure to other specified factors, initial encounter; Y93.89 Activity, other specified; Y92.89 Other specified places as the place of occurrence of the external cause; Y99.8 Other external cause status
CPT/HCPCS: 99283

== ENCOUNTER 2020-11-11 07:39 | Emergency (ER) | payer SELFPAY ==
[~2020-11-11] VITALS: Ht 154.9 cm; Wt 95.5 kg
[~2020-11-11 07:39] MED LIST changes: +CYCL-331 PO; +METH4TAB2 PO; +NAPR-514 PO
--- NOTE | 2020-11-11 07:58 | PHYS DOC ---
Past History Past Medical History: Anxiety, Asthma, Bipolar, Depression Past Surgical History: , Tubal ligation Smoking: Non-smoker Alcohol Use: Rarely Drug Use: None General Adult EDM: Chief Complaint: Pelvic pain/abdominal pain HPI: HPI: This is a pleasant 30-year-old female presenting with lower abdominal pain/pelvic pain bilaterally. Been present intermittently for 2 days about. She denies any vomiting but has had nausea. She denies changes in her stool pattern. She denies any recent exposure to STDs or changes in vaginal discharge. The pain is sharp shooting comes and goes. It radiates bilaterally along the flank. She denies chest pain or shortness of breath. The pain is moderate comes in waves the last for 20-30 minutes. Review of systems is negative for chest pain shortness of breath vomiting nuchal rigidity rashes or fevers. All other review of systems negative. ED course: 30-year-old female presenting the emergency department today with lower abdominal pain and pelvic pain. Work-up in the emergency department is largely unremarkable other than a mild left colitis on CT and a simple ovarian cyst. Will discharge patient to follow-up with her PCP in 1 day for repeat abdominal examination. She is to return if her pain worsens or if she is concerned for any reason. [id number] discharge instructions and return precautions given. Patient is comfortable with plan. Allergies: Allergies: Allergies Coded Allergies Type Severity Reaction Last Updated Verified Penicillins Allergy Intermediate 04/06/20 Yes shellfish derived Allergy Unknown 04/06/20 Yes Physical Exam: PE: Constitutional: Well developed, well nourished, no acute distress, non-toxic appearance. [] HENT: Normocephalic, atraumatic, bilateral external ears normal, oropharynx moist, no oral exudates, nose normal. [] Eyes: PERRLA, EOMI, conjunctiva normal, no discharge. [] Neck: Normal range of motion, no tenderness, supple, no stridor. [] Cardiovascular:Heart rate regular rhythm, no murmur [] Lungs & Thorax: Bilateral breath sounds clear to auscultation [] Abdomen: Bowel sounds normal, soft, no tenderness, no masses, no pulsatile masses. No rebound tenderness or guarding. Skin: Warm, dry, no erythema, no rash. [] Back: No tenderness, no CVA tenderness. [] Extremities: No tenderness, no cyanosis, no clubbing, ROM intact, no edema. [] Neurologic: Alert and oriented X 3, normal motor function, normal sensory function, no focal deficits noted. [] Psychologic: Affect normal, judgement normal, mood normal. [] EKG: EKG: [] Radiology/Procedures: Radiology/Procedures: [] Heart Score: Risk Factors: Risk Factors: DM, Current or recent (<one month) smoker, HTN, HLP, family history of CAD, obesity. Risk Scores: Score 0 - 3: 2.5% MACE over next 6 weeks - Discharge Home Score 4 - 6: 20.3% MACE over next 6 weeks - Admit for Clinical Observation Score 7 - 10: 72.7% MACE over next 6 weeks - Early Invasive Strategies Course & Med Decision Making: Course & Med Decision Making Pertinent Labs and Imaging studies reviewed. (See chart for details) [] Dragon Disclaimer: Dragon Disclaimer: This electronic medical record was generated, in whole or in part, using a voice recognition dictation system. Departure Departure: Impression: Primary Impression: Abdominal pain Additional Impressions: Colitis Ovarian cyst Disposition: 01 DC HOME SELF CARE/HOMELESS Condition: STABLE Referrals: KELSEY BAUER PA-C (PCP) Patient Instructions: Abdominal Pain, Women, Colitis, Ovarian Cyst Scripts Metronidazole (FLAGYL) 500 Mg Tablet 1 TAB PO BID for colitis, #20 TAB Prov: ALICE TURNER MD 11/11/20 Ciprofloxacin (CIPRO) 500 Mg/[address] [facility].rec 500 MG PO BID for colitis for 10 Days, #20 MISC Prov: ALICE TURNER MD 11/11/20 ALICE TURNER MD Nov 11, 2020 07:57
[2020-11-11] MEDS ORDERED: IOHEXOL 300 MG/ML 75 ML VIAL. IV ONE (08:00)
[2020-11-11] MEDS: IV NORMAL SALINE 1,000ML 1,000 ML IV ONE (08:34)
[2020-11-11] MEDS: METOCLOPRAMIDE HCL 10 MG/2 ML VIAL. IVP ONE (08:34)
[2020-11-11 09:14] LABS: BASO % 0 % (0-3); EOS # 0.2 x10^3/uL (0.0-0.7); EOS % 3 % (0-3); HEMATOCRIT 40.2 % (36.0-47.0); LYMPH # 1.5 x10^3/uL (1.0-4.8); LYMPH % 15 % (24-48); MEAN CORPUSCULAR HEMOGLOBIN 27 pg (25-35); MEAN CORPUSCULAR HGB CONC 32 g/dL (31-37); MEAN CORPUSCULAR VOLUME 83 fL (79-100); MONO # 0.6 x10^3/uL (0.0-1.1); MONO % 6 % (0-9); NEUT # 7.5 x10^3uL (1.8-7.7); NEUT % 77 % (31-73); PLATELET COUNT 308 x10^3/uL (140-400); RED BLOOD COUNT 4.84 x10^6/uL (3.50-5.40); RED CELL DISTRIBUTION WIDTH 14.4 % (11.5-14.5); WHITE BLOOD COUNT 9.8 x10^3/uL (4.0-11.0)
[2020-11-11 09:15] LABS: CALCIUM 8.4 mg/dL (8.5-10.1); CREATININE 0.9 mg/dL (0.6-1.0); POTASSIUM 3.5 mmol/L (3.5-5.1)
[2020-11-11] MEDS: KETOROLAC 15 MG/ML VIAL. IVP ONE (09:20)
[2020-11-11 09:21] LABS: ALBUMIN 3.5 g/dL (3.4-5.0); DIRECT BILIRUBIN 0.1 mg/dL (0.0-0.2); TOTAL BILIRUBIN 0.2 mg/dL (0.2-1.0); TOTAL PROTEIN 7.4 g/dL (6.4-8.2)
[2020-11-11 09:23] LABS: BACTERIA,URINE 0 /HPF (0-FEW); BILIRUBIN,URINE NEG (NEG); CLARITY,URINE CLEAR; COLOR,URINE YELLOW; GLUCOSE,URINE NEG (NEG); NITRITE,URINE NEG (NEG); SQUAMOUS EPITHELIAL CELL,UR MOD /LPF; UROBILINOGEN,URINE 0.2 mg/dL (0.2 mg/dL)
[2020-11-11 09:45] VITALS: BP 116/73
--- NOTE | 2020-11-11 09:52 | RAD ---
Exam: CT abdomen/pelvis without intravenous contrast Indication: Lower abdominal and pelvic pain Comparison: CT abdomen and pelvis 02/22/2020 Technique: Helical CT imaging performed of the abdomen and pelvis without the use of intravenous cont rast. Sagittal and coronal reformats were obtained. One or more of the following individualized dose reduction techniques were utilized for this examinat ion: 1. Automated exposure control 2. Adjustment of the mA and/or kV according to patient size 3. Use of iterative reconstruction technique. Findings: Inherently limited evaluation without intravenous contrast. Lower chest: Lung bases are clear. The heart is normal in size. Liver: Normal. Gallbladder/Biliary Tree: Normal. Pancreas: Normal. Spleen: Normal. Adrenal Glands: Normal. Kidneys/Ureters/Bladder: Normal. No urolithiasis or hydronephrosis. Reproductive Organs: The uterus is anteverted. There is a 3.7 x 3.9 x 3.2 cm hypodense left ovarian c ystic lesion with some hyperdense material layering dependently. This previously measured 3.7 x 4.2 x 3.7 cm. Stomach, small bowel, and colon: Stomach is normal. There is no small bowel obstruction. There is new colonic wall thickening from the distal transverse colon through the rectum. Subtle pericolonic fat stranding along the transverse and descending colon. Vasculature: Abdominal aorta and inferior vena cava are normal. Lymph Nodes: No lymphadenopathy. Peritoneum and retroperitoneum: No free fluid or free air. Bones: There is chronic L5 spondylolysis without spondylolisthesis. Impression: 1. New mild colitis from the distal transverse colon through the rectum. 2. Slightly decreased size of cystic left ovarian cystic lesion with some layering hyperdense materi al. This may be a complex or hemorrhagic cyst and could be further evaluated by pelvic ultrasound. 3. Chronic L5 spondylolysis without spondylolisthesis. Electronically signed by: Daisha Camp MD (11/11/2020 9:49 AM) [id number]
--- NOTE | 2020-11-11 10:00 | RAD ---
EXAMINATION: US PELVIS W/TV, 11/11/2020 8:02 AM CLINICAL INDICATION: Pelvic pain TECHNIQUE: Grayscale, color and spectral Doppler ultrasound images of the pelvis via transabdominal a nd transvaginal approach. COMPARISON: CT abdomen and pelvis 11/11/2020, 02/22/2020, and pelvic ultrasound 05/18/2020 FINDINGS: The uterus measures 7.0 x 3.6 x 3.6 cm. The endometrial stripe measures 9 mm in thickness. There is l obulation along the anterior lower uterine segment, likely related to prior scar. No myomet rial mass. The right ovary measures 1.7 x 1.8 x 1.3 cm. The left ovary measures 3.0 x 3.4 x 3.6 cm. There is nor mal blood flow to both ovaries. There is an anechoic cystic lesion in the left ovary measuring 2.6 x 2.4 x 2.2 cm. No internal blood flow. This correlates with the abnormality seen on CT, although appea rs smaller on ultrasound. Normal Doppler blood flow to both ovaries. No free fluid or adnexal mass. IMPRESSION: 2.6 cm simple left ovarian cyst. No suspicious ovarian mass or other acute abnormality. Electronically signed by: Daisha Camp MD (11/11/2020 9:58 AM) [id number]
[2020-11-11 10:02] LABS: PREG TEST PT QUAL NEGATIVE (NEG)
[2020-11-11] MEDS ORDERED: CIPR500S2 PO (10:16)
[2020-11-11] MEDS ORDERED: METR500T PO (10:16)
== END 2020-11-11 10:25 | disposition home or self-care (01) ==
LOC: ER 07:39
DX: K52.9 Noninfective gastroenteritis and colitis, unspecified (principal); R10.2 Pelvic and perineal pain; N83.202 Unspecified ovarian cyst, left side; F41.9 Anxiety disorder, unspecified; J45.909 Unspecified asthma, uncomplicated; F31.9 Bipolar disorder, unspecified; Z98.890 Other specified postprocedural states; Z98.51 Tubal ligation status; Z88.0 Allergy status to penicillin; Z91.013 Allergy to seafood
CPT/HCPCS: 36415; 74176; 76830; 76856; 80048; 80076; 81001; 81025; 83690; 84703; 85025; 87491; 87591; 96361; 96374; 96375; 99285; J1885; J2765; J7030

== ENCOUNTER 2022-01-25 19:27 | Emergency (ER) | payer SELFPAY ==
[~2022-01-25] VITALS: Ht 154.9 cm; Wt 95.5 kg
[~2022-01-25 19:27] MED LIST changes: +CIPR500S2 PO; -CYCL-331 PO; +CYCL10TA19 PO
[2022-01-25] MEDS ORDERED: IPRATRPIUM/ALBUTEROL 0.5/2.5MG 3 ML NEBU. ONE (19:44)
[2022-01-25] MEDS ORDERED: DEXAMETHASONE 4 MG TABLET PO ONE (19:45)
--- NOTE | 2022-01-25 19:46 | PHYS DOC ---
Past History Past Medical History: Asthma, Bipolar Past Surgical History: , Tubal ligation Smoking: Non-smoker Alcohol Use: None Drug Use: None Adult General Chief Complaint Chief Complaint: COUGH HPI HPI Patient is a 31-year-old female with a past medical history significant for asthma who presents with a chief complaint of fever earlier in the day, cough and wheeze. States he has been using her albuterol all day long which did help a little. Did not take any other medications. States she is eating and drinking normally. States he is making urine and stool normally. Denies any recent other traumas, travels, known ill contacts, abdominal pain, nausea, vomiting, diarrhea. Review of Systems Review of Systems Review of systems otherwise unremarkable except noted in HPI Allergies Allergies Allergies Coded Allergies Type Severity Reaction Last Updated Verified Iodinated Contrast Media Allergy Intermediate Rash 11/11/20 Yes Penicillins Allergy Intermediate 04/06/20 Yes shellfish derived Allergy Unknown 04/06/20 Yes Physical Exam Physical Exam Constitutional: Well developed, well nourished, no acute distress, non-toxic appearance. [] HENT: Normocephalic, atraumatic,oropharynx moist, Neck: Normal range of motion, no tenderness, supple, no stridor. [] Cardiovascular:Heart rate regular rhythm, no murmur [] Lungs & Thorax: No respiratory distress, bilateral end expiratory wheeze with some upper respiratory congestion Abdomen: soft, no tenderness, no masses, no pulsatile masses. [] Skin: Warm, dry, no erythema, no rash. [] Neurologic: Alert and oriented X 3, no focal deficits noted. [] Psychologic: Affect normal, judgement normal, mood normal. [] Current Patient Data Vital Signs Vital Signs Date Time Temp Pulse Resp B/P (MAP) Pulse Ox O2 Delivery O2 Flow Rate FiO2 01/25/22 19:27 97.5 121 28 151/76 (101) 94 Room Air EKG EKG [] Radiology/Procedures Radiology/Procedures [] Heart Score C/O Chest Pain: N/A Risk Factors: Risk Factors: DM, Current or recent (<one month) smoker, HTN, HLP, family history of CAD, obesity. Risk Scores: Risk Factors: DM, Current or recent (<one month) smoker, HTN, HLP, family history of CAD, obesity. Course & Med Decision Making Course & Med Decision Making Patient is a 31-year-old female with asthma who presents with a chief complaint of a day of wheezing and cough and fever earlier this morning Vital signs notable for tachycardia, tachypnea and hypertension. Likely at le ast in part secondary to all the albuterol she is today. Physical exam noted above. Given breathing treatment, steroids and cough medicine. Discussed symptom management at home. Advised on use of albuterol Advised to follow-up in the morning with primary care physician update on ED visit and set up a follow-up. Gave return precautions to the ED. Patient grateful, verbalized understanding and agreed with plan of discharge. [] Dragon Disclaimer Dragon Disclaimer This electronic medical record was generated, in whole or in part, using a voice recognition dictation system. Departure Departure: Impression: Primary Impression: Acute asthma exacerbation Additional Impression: Viral syndrome Disposition: HOME / SELF CARE / HOMELESS Condition: STABLE Referrals: PCP,KOKO (PCP) SOHEILA SWAIN Patient Instructions: Asthma Attacks, Prevention, Asthma, Adult Additional Instructions: Thank you for coming into the emergency department today and allowing us to take care of you. Please read the attached information carefully to go over things we discussed. Please continue use your albuterol at home as needed. Problem Qualifiers DEVEN BRYANT MD Jan 25, 2022 19:46
[2022-01-25] MEDS ORDERED: guaiFENesin/CODEINE 100mg/10mg 5 ML LIQUID PO PRN (20:15)
--- NOTE | 2022-01-25 20:46 | RAD ---
XR CHEST 1V 01/25/2022 7:50 PM INDICATION: Cough, fever COMPARISON: 11/13/2017 TECHNIQUE: Portable frontal view of the chest is provided. FINDINGS: The cardiomediastinal silhouette is within normal limits. Lungs are clear. There are no significant pleural effusions. There is no pulmonary vascular congestion. No pneumothora x. No suspicious osseous abnormality. IMPRESSION: There is no acute cardiopulmonary process. Electronically signed by: Pratibha Heredia MD (01/25/2022 8:43 PM) [facility]
[2022-01-25 21:10] VITALS: BP 152/74
== END 2022-01-25 21:15 | disposition home or self-care (01) ==
LOC: ER 19:27
DX: J45.901 Unspecified asthma with (acute) exacerbation (principal); B34.9 Viral infection, unspecified; F31.9 Bipolar disorder, unspecified; Z91.041 Radiographic dye allergy status; Z88.0 Allergy status to penicillin; Z91.013 Allergy to seafood
CPT/HCPCS: 71045; 94640; 99283; J8540